=== PATIENT | female | born 1955 | race Caucasian/White ===

== ENCOUNTER 2019-03-31 23:14 | Emergency (ER) | payer OTHER, MEDICAID ==
[~2019-03-31] VITALS: Ht 154.9 cm; Wt 86.9 kg
[2019-03-31] MEDS ORDERED: IPRATRPIUM/ALBUTEROL 0.5/2.5MG 3 ML NEBU. NEB ONE (23:45)
[2019-03-31] MEDS ORDERED: DEXAMETHASONE SOD PHOS 4 MG/ML VIAL IVP ONE (23:45)
[2019-03-31] MEDS ORDERED: ASPIRIN 325 MG TABLET PO ONE (23:45)
[2019-03-31 23:58] LABS: BGAS PH 7.35 (7.35-7.45)
[2019-04-01] MEDS ORDERED: MAGNESIUM SULFATE 2GM 50 ML IV ONE
[2019-04-01 00:06] LABS: BASO # 0.1 x10^3/uL (0.0-0.2); BASO % 1 % (0-3); EOS # 0.3 x10^3/uL (0.0-0.7); EOS % 3 % (0-3); HEMATOCRIT 43.2 % (36.0-47.0); HEMOGLOBIN 14.2 g/dL (12.0-15.5); LYMPH # 3.7 x10^3/uL (1.0-4.8); LYMPH % 35 % (24-48); MEAN CORPUSCULAR HEMOGLOBIN 30 pg (25-35); MEAN CORPUSCULAR HGB CONC 33 g/dL (31-37); MEAN CORPUSCULAR VOLUME 92 fL (79-100); MONO # 0.6 x10^3/uL (0.0-1.1); MONO % 6 % (0-9); NEUT # 5.9 x10^3uL (1.8-7.7); NEUT % 56 % (31-73); PLATELET COUNT 218 x10^3/uL (140-400); RED BLOOD COUNT 4.67 x10^6/uL (3.50-5.40); RED CELL DISTRIBUTION WIDTH 13.9 % (11.5-14.5); WHITE BLOOD COUNT 10.7 x10^3/uL (4.0-11.0)
[2019-04-01 00:08] LABS: INFLUENZA A PATIENT NEGATIVE (NEGATIVE); INFLUENZA B PATIENT NEGATIVE (NEGATIVE)
[2019-04-01 00:11] LABS: ANION GAP 12 (6-14); BLOOD UREA NITROGEN 12 mg/dL (7-20); BUN/CREATININE RATIO 17 (6-20); CALCIUM 8.5 mg/dL (8.5-10.1); CARBON DIOXIDE 24 mmol/L (21-32); CHLORIDE 103 mmol/L (98-107); CREATININE 0.7 mg/dL (0.6-1.0); GLUCOSE 344 mg/dL (70-99); SODIUM 139 mmol/L (136-145)
[2019-04-01 00:15] LABS: POTASSIUM 4.5 mmol/L (3.5-5.1)
[2019-04-01 00:39] LABS: ALBUMIN 3.5 g/dL (3.4-5.0); ALK PHOS 66 U/L (46-116); AST (SGOT) 96 U/L (15-37); LIPASE 113 U/L (73-393); MAGNESIUM 1.9 mg/dL (1.8-2.4); TOTAL BILIRUBIN 0.3 mg/dL (0.2-1.0); TOTAL PROTEIN 6.9 g/dL (6.4-8.2)
[2019-04-01 00:42] LABS: ALT (SGPT) < 6 U/L (14-59)
--- NOTE | 2019-04-01 01:21 | PHYS DOC ---
Past History Past Medical History: Bronchitis, CHF, COPD, Diabetes, Hypertension, Pneumonia Past Surgical History: Cholecystectomy, Oophorectomy, Other Smoking: Cigarettes, Less than 1pk/day Alcohol Use: None Drug Use: None Adult General Chief Complaint Chief Complaint: SHORTNESS OF BREATH HPI HPI 63-year-old female presents via EMS with report of respiratory distress and hypoxia. Patient with history of recent admission to [facility] from 03/15/2019 - 03/18/2019 with reported pneumonia. Patient reports she had finished dosing of her antibiotics. Patient had required BiPAP at that time. Patient does have history of COPD, CHF, and prior CAD. Denies fever or chills. Denies trauma. History of present illness limited secondary to respiratory distress. Review of Systems Review of Systems Constitutional: Denies fever Respiratory: Reports shortness of breath Cardiovascular: Reports chest pain GI: Denies abdominal pain, nausea, or vomiting Review of systems limited secondary to respiratory distress. Current Medications Current Medications Current Medications Medications (Trade) Dose Ordered Sig/Kevin Start Time Stop Time Status Last Admin Dose Admin Albuterol/ Ipratropium (Duoneb) 3 ml 1X ONCE 03/31/19 23:45 03/31/19 23:46 DC 03/30/19 23:59 3 ML Aspirin (Angela Aspirin) 325 mg 1X ONCE 03/31/19 23:45 03/31/19 23:46 DC 04/01/19 00:08 325 MG Dexamethasone Sodium Phosphate (Decadron) 10 mg 1X ONCE 03/31/19 23:45 03/31/19 23:46 DC 03/31/19 23:55 10 MG Fentanyl Citrate (Fentanyl 2ml Vial) 50 mcg 1X ONCE 04/01/19 00:30 04/01/19 00:31 DC 04/01/19 00:31 50 MCG Furosemide (Lasix) 40 mg 1X ONCE 04/01/19 01:30 04/01/19 01:31 Insulin Human Regular (HumuLIN R VIAL) 10 unit 1X ONCE 04/01/19 01:30 04/01/19 01:31 Magnesium Sulfate 50 ml @ 25 mls/hr 1X ONCE 04/01/19 00:00 04/01/19 01:59 03/31/19 23:55 25 MLS/HR Allergies Allergies Allergies Coded Allergies Type Severity Reaction Last Updated Verified Penicillins Allergy Severe Hives 04/01/19 Yes cephalexin Allergy Severe Hives 04/01/19 Yes diphenhydramine Allergy Intermediate 04/01/19 Yes prednisone Adverse Reaction Mild MAKES HER FEEL AMPED UP 04/01/19 Yes Physical Exam Physical Exam Constitutional: Well developed, well nourished, moderate respiratory distress HENT: Normocephalic, atraumatic, oropharynx moist Eyes: Conjunctiva normal, no discharge Neck: Normal range of motion, no tenderness, supple Cardiovascular: Heart rate tachycardic, regular rhythm Lungs & Thorax: Bilateral breath sounds diminished with coarse breath sounds Abdomen: Soft, no tenderness Skin: Warm, dry, no erythema, no rash Back: No tenderness, no CVA tenderness Extremities: No tenderness, ROM intact, 1-2+ bilateral lower extremity edema Neurologic: Alert and oriented X 3, normal motor function, normal sensory function, no focal deficits noted Psychologic: Affect anxious, judgement normal Current Patient Data Vital Signs Vital Signs Date Time Temp Pulse Resp B/P (MAP) Pulse Ox O2 Delivery O2 Flow Rate FiO2 04/01/19 00:31 33 94 BiPAP/CPAP Lab Results Laboratory Tests Test 03/31/19 23:33 03/31/19 23:47 03/31/19 23:50 03/31/19 23:55 Influenza Type A (Rapid) Negative (NEGATIVE) Influenza Type B (Rapid) Negative (NEGATIVE) POC Arterial pH 7.34 (7.35-7.45) L Arterial Blood pH (Temp corrected) 7.35 POC Arterial pCO2 44 mmHg (35-45) Arterial Blood pCO2 (Temp correct) 43 mmHg POC Arterial pO2 78 mmHg (75-100) Arterial Blood pO2 (Temp corrected) 75 mmHg Arterial Blood HCO3 24 mmol/L (21-28) POC Arterial Blood O2 Sat 94 % (95-99) L POC FiO2 65.0 White Blood Count 10.7 x10^3/uL (4.0-11.0) Red Blood Count 4.67 x10^6/uL (3.50-5.40) Hemoglobin 14.2 g/dL (12.0-15.5) Hematocrit 43.2 % (36.0-47.0) Mean Corpuscular Volume 92 fL (79-100) Mean Corpuscular Hemoglobin 30 pg (25-35) Mean Corpuscular Hemoglobin Concent 33 g/dL (31-37) Red Cell Distribution Width 13.9 % (11.5-14.5) Platelet Count 218 x10^3/uL (140-400) Neutrophils (%) (Auto) 56 % (31-73) Lymphocytes (%) (Auto) 35 % (24-48) Monocytes (%) (Auto) 6 % (0-9) Eosinophils (%) (Auto) 3 % (0-3) Basophils (%) (Auto) 1 % (0-3) Neutrophils # (Auto) 5.9 x10^3uL (1.8-7.7) Lymphocytes # (Auto) 3.7 x10^3/uL (1.0-4.8) Monocytes # (Auto) 0.6 x10^3/uL (0.0-1.1) Eosinophils # (Auto) 0.3 x10^3/uL (0.0-0.7) Basophils # (Auto) 0.1 x10^3/uL (0.0-0.2) Prothrombin Time 10.4 SEC (9.4-11.4) Prothrombin Time INR 1.0 (0.9-1.1) Activated Partial Thromboplast Time 24 SEC (23-33) Sodium Level 139 mmol/L (136-145) Potassium Level 4.5 mmol/L (3.5-5.1) Chloride Level 103 mmol/L (98-107) Carbon Dioxide Level 24 mmol/L (21-32) Anion Gap 12 (6-14) Blood Urea Nitrogen 12 mg/dL (7-20) Creatinine 0.7 mg/dL (0.6-1.0) Estimated GFR (Cockcroft-Gault) 84.0 BUN/Creatinine Ratio 17 (6-20) Glucose Level 344 mg/dL (70-99) H Lactic Acid Level 1.4 mmol/L (0.4-2.0) Calcium Level 8.5 mg/dL (8.5-10.1) Magnesium Level 1.9 mg/dL (1.8-2.4) Total Bilirubin 0.3 mg/dL (0.2-1.0) Aspartate Amino Transferase (AST) 96 U/L (15-37) H Alanine Aminotransferase (ALT) < 6 U/L (14-59) L Alkaline Phosphatase 66 U/L (46-116) Creatine Kinase 55 U/L (26-192) Creatine Kinase MB (Mass) 0.6 ng/mL (0.0-3.6) Creatine Kinase MB Relative Index 1.1 % (0-4) Troponin I Quantitative < 0.017 ng/mL (0-0.055) ST-Mhu-N-Type Natriuretic Peptide 1268 pg/mL (0-124) H Total Protein 6.9 g/dL (6.4-8.2) Albumin 3.5 g/dL (3.4-5.0) Albumin/Globulin Ratio 1.0 (1.0-1.7) Lipase 113 U/L (73-393) Blood pH 7.35 (7.35-7.45) Blood Gas PCO2 43 mmHg (35-45) Blood Gas PO2 75 mmHg (80-100) L Blood Gas HCO3 24 mmol/L (22-26) Arterial Bld O2 Saturation (Calc) 94 % (92-99) FiO2 65 % EKG EKG @2355 Sinus tachycardia at 118bpm, NO ST elevation, frequent PVCs Radiology/Procedures Radiology/Procedures PROCEDURE: PORTABLE CHEST 1V EXAM: AP View of the chest DATE: 03/31/2019 11:21 PM INDICATION: Dyspnea.Hx COPD,smoker COMPARISON: 12/25/2011 FINDINGS: Moderate cardiomegaly Mediastinal and hilar contours are stable. No lobar consolidation. Bilateral interstitial prominence. Superimposed patchy airspace opacities in the left suprahilar region may represent developing consolidative process. No pleural effusion or pneumothorax. IMPRESSION: 1. Bilateral interstitial prominence with cardiomegaly, nonspecific but may be seen with pulmonary edema. 2. Superimposed patchy airspace opacities in the left suprahilar region may represent developing consolidative process. Imaging follow up to resolution is recommended. Electronically signed by: Alejandro Fischer MD (04/01/2019 1:24 AM) [facility] Course & Med Decision Making Course & Med Decision Making Pertinent Labs and Imaging studies reviewed. (See chart for details) Patient presents via EMS with report of progressive shortness of breath. Patient noted to be significant family tachycardic up into the 140s and hypoxic down to mid 80s. Patient without significant improvement of oxygenation despite supplemental O2. Patient with increased work of breathing. BiPAP therefore applied. DuoNeb provided. ABG without significant hypercapnia. EKG stable. Labs obtained and posted to chart. BNP elevated. Initial troponin within normal limits. White blood cell count and lactic acid within normal limits. Rapid influenza negative. Hyperglycemia addressed. CXR with findings of increased vascular congestion. Lasix IV and nitro paste provided. Patient requiring admission for further evaluation and treatment. Discussed with Dr. Acosta (hospitalist) at [place]. requests transfer to [place] with admission to hospitalist group for continuity of care given recent admission and for possible need for continued pulmonology consultation. Discussed case with Dr. Cheney (hospitalist) at [place], who is in agreement with transfer for admission. Discussed findings and plan with patient and family, who acknowledge understanding and agreement. Dragon Disclaimer Dragon Disclaimer This electronic medical record was generated, in whole or in part, using a voice recognition dictation system. Departure Departure: Impression: Primary Impression: Respiratory failure Additional Impressions: Hypoxia Acute exacerbation of CHF (congestive heart failure) Hyperglycemia Chest pain Disposition: 05 TRANSFER OTHER ([facility]) Condition: GUARDED Referrals: ANATOLIY MUHAMMAD MD (PCP) HEART Score for Chest Pain PTs The HEART Score for CP Pts HEART Score for Chest Pain: HEART Score for Chest Pain Response (Comments) Value History Moderately Suspicious 1 ECG Nonspecific Repolarizatio 1 Age >45 - < 65 1 Risk Factors >3 Risk Factors or Hx CAD 2 Troponin < Normal Limit 0 Total 5 Risk Factors: Risk Factors: DM, Current or recent (<one month) smoker, HTN, HLP, family history of CAD, obesity. Risk Scores: Score 0 - 3: 2.5% MACE over next 6 weeks - Discharge Home Score 4 - 6: 20.3% MACE over next 6 weeks - Admit for Clinical Observation Score 7 - 10: 72.7% MACE over next 6 weeks - Early Invasive Strategies Critical Care Time Critical care time was 30 minutes which includes time at bedside, spent in discussion of patient's care with specialists and/or family members, with interpretation of laboratory and/or radiological studies and is exclusive of procedures. Problem Qualifiers Primary Impression: Respiratory failure Chronicity: acute Respiratory failure complication: hypoxia Qualified Codes: J96.01 - Acute respiratory failure with hypoxia Additional Impressions: Acute exacerbation of CHF (congestive heart failure) Heart failure type: diastolic Qualified Codes: I50.33 - Acute on chronic diastolic (congestive) heart failure Chest pain Chest pain type: unspecified Qualified Codes: R07.9 - Chest pain, unspecified CHELSI JONES DO Apr 01, 2019 01:21
--- NOTE | 2019-04-01 01:27 | RAD ---
EXAM: AP View of the chest DATE: 03/31/2019 11:21 PM INDICATION: Dyspnea.Hx COPD,smoker COMPARISON: 12/25/2011 FINDINGS: Moderate cardiomegaly Mediastinal and hilar contours are stable. No lobar consolidation. Bilateral interstitial prominence. Superimposed patchy airspace opacities in the left suprahilar region may represent developing consolidative process. No pleural effusion or pneumothorax. IMPRESSION: 1. Bilateral interstitial prominence with cardiomegaly, nonspecific but may be seen with pulmonary edema. 2. Superimposed patchy airspace opacities in the left suprahilar region may represent developing consolidative process. Imaging follow up to resolution is recommended. Electronically signed by: Alejandro Fischer MD (04/01/2019 1:24 AM) [facility]
[2019-04-01] MEDS ORDERED: FUROSEMIDE 40 MG/4 ML VIAL IVP ONE (01:30)
[2019-04-01] MEDS ORDERED: INSULIN REGULAR 100 UNIT/ML 3ML VIAL. SQ ONE (01:30)
[2019-04-01 01:51] VITALS: BP 136/93
[2019-04-01] MEDS ORDERED: NITROGLYCERIN OINT 1 GM PACKET. TP ONE (02:00)
[2019-04-01] MEDS ORDERED: IPRATRPIUM/ALBUTEROL 0.5/2.5MG 3 ML NEBU. NEB ONE (02:15)
--- NOTE | 2019-04-01 23:56 | EKG ---
[address] [address] Test Date: 2019-03-31 Test Time: 23:55:40 Pat Name: JOSEPH BO Department: Room: Gender: F Outside Collector: : 1955 Requested By: CHELSI JONES Order Number: [id number] Reading MD: Measurements Intervals [place] Rate: 118 P: 10 IN: 132 QRS: 49 QRSD: 102 T: 34 QT: 328 QTc: 462 Interpretive Statements SINUS TACHYCARDIA QRS(T) CONTOUR ABNORMALITY CONSIDER ANTEROSEPTAL MYOCARDIAL DAMAGE POSSIBLY ABNORMAL ECG RI6.01 No previous ECG available for comparison
== END 2019-04-01 02:53 | disposition short-term general hospital (02) ==
LOC: ER 23:14
DX: J96.01 Acute respiratory failure with hypoxia (principal); I11.0 Hypertensive heart disease with heart failure; I50.33 Acute on chronic diastolic (congestive) heart failure; R07.9 Chest pain, unspecified; E11.65 Type 2 diabetes mellitus with hyperglycemia; J44.9 Chronic obstructive pulmonary disease, unspecified; F17.210 Nicotine dependence, cigarettes, uncomplicated; Z88.0 Allergy status to penicillin; Z88.8 Allergy status to other drugs, medicaments and biological substances; Z88.1 Allergy status to other antibiotic agents
CPT/HCPCS: 36415; 36600; 71045; 80053; 82553; 82803; 83605; 83690; 83735; 83880; 84484; 85025; 85610; 85730; 87040; 87804; 93005; 94640; 94660; 96365; 96366; 96372; 96375; 96376; 99291; J1100; J1815; J1940; J2060; J3010; J3475; J7620

== ENCOUNTER 2019-04-22 20:26 | Emergency (ER) | payer OTHER, MEDICAID ==
[~2019-04-22] VITALS: Ht 154.9 cm; Wt 84.3 kg
[2019-04-22 21:15] LABS: BASO # 0.1 x10^3/uL (0.0-0.2); BASO % 1 % (0-3); EOS # 0.1 x10^3/uL (0.0-0.7); EOS % 1 % (0-3); HEMATOCRIT 36.5 % (36.0-47.0); HEMOGLOBIN 11.9 g/dL (12.0-15.5); LYMPH # 1.9 x10^3/uL (1.0-4.8); LYMPH % 17 % (24-48); MEAN CORPUSCULAR HEMOGLOBIN 30 pg (25-35); MEAN CORPUSCULAR HGB CONC 33 g/dL (31-37); MEAN CORPUSCULAR VOLUME 91 fL (79-100); MONO # 0.9 x10^3/uL (0.0-1.1); MONO % 8 % (0-9); NEUT # 8.1 x10^3uL (1.8-7.7); NEUT % 73 % (31-73); PLATELET COUNT 233 x10^3/uL (140-400); RED CELL DISTRIBUTION WIDTH 14.6 % (11.5-14.5); WHITE BLOOD COUNT 11.2 x10^3/uL (4.0-11.0)
--- NOTE | 2019-04-22 21:17 | PHYS DOC ---
Past History Past Medical History: Bronchitis, CAD, CHF, COPD, Diabetes, Hypertension, Pneumonia Past Surgical History: Cholecystectomy, Oophorectomy, Other Additional Past Surgical Histo: CARDIAC STENT Smoking: Cigarettes, Less than 1pk/day Alcohol Use: None Drug Use: None Adult General Chief Complaint Chief Complaint: BRADYCARDIA HPI HPI 63-year-old female presents with bradycardia. The patient was at home with her blood pressure machine and her heart rate was in the low 50s. She is very concerned this is not like this before. Patient had stents placed at [facility] about 4 days ago. She comes in because she wants to make sure there is not complication. She is wearing a life vest has not shocked her today. She has been feeling more fatigued, but denies shortness of breath or dizziness. She has no chest pain. Denies fever or chills. Review of Systems Review of Systems Constitutional: Denies fever or chills [] Eyes: Denies change in visual acuity, redness, or eye pain [] HENT: Denies nasal congestion or sore throat [] Respiratory: Denies cough or shortness of breath [] Cardiovascular: No additional information not addressed in HPI [] GI: Denies abdominal pain, nausea, vomiting, bloody stools or diarrhea [] : Denies dysuria or hematuria [] Musculoskeletal: Denies back pain or joint pain [] Integument: Denies rash or skin lesions [] Neurologic: Denies headache, focal weakness or sensory changes [] Endocrine: Denies polyuria or polydipsia [] All other systems were reviewed and found to be within normal limits, except as documented in this note. Allergies Allergies Allergies Coded Allergies Type Severity Reaction Last Updated Verified Penicillins Allergy Severe Hives 04/01/19 Yes cephalexin Allergy Severe Hives 04/01/19 Yes diphenhydramine Allergy Intermediate 04/01/19 Yes prednisone Adverse Reaction Mild MAKES HER FEEL AMPED UP 04/01/19 Yes Physical Exam Physical Exam Constitutional: Well developed, well nourished, no acute distress, non-toxic appearance. [] HENT: Normocephalic, atraumatic, bilateral external ears normal, oropharynx moist, no oral exudates, nose normal. [] Eyes: PERRLA, EOMI, conjunctiva normal, no discharge. [] Neck: Normal range of motion, no tenderness, supple, no stridor. [] Cardiovascular:Heart rate regular rhythm, no murmur [] Lungs & Thorax: Bilateral breath sounds clear to auscultation. Lifevest lying on the bed. [] Abdomen: Bowel sounds normal, soft, no tenderness, no masses, no pulsatile masses. [] Skin: Warm, dry, no erythema, no rash. [] Back: No tenderness, no CVA tenderness. [] Extremities: No tenderness, no cyanosis, no clubbing, ROM intact, no edema. [] Neurologic: Alert and oriented X 3, normal motor function, normal sensory function, no focal deficits noted. [] Psychologic: Affect normal, judgement normal, mood concerned. [] Current Patient Data Vital Signs Vital Signs Date Time Temp Pulse Resp B/P (MAP) Pulse Ox O2 Delivery O2 Flow Rate FiO2 04/22/19 20:30 98.2 92 24 136/93 (107) 97 Room Air EKG EKG Sinus rhythm, rate 93, PVCs, possible bigeminy, no ST elevations or depressions.[] Radiology/Procedures Radiology/Procedures [] Impressions: EXAM: CHEST ONE VIEW. HISTORY: Bradycardia. COMPARISON: 04/01/2019. FINDINGS: A frontal view of the chest is obtained. There is a small left pleural effusion. Basilar interstitial opacities are consistent with atelectasis and mild pulmonary edema. There is no pneumothorax. The heart is mildly enlarged. IMPRESSION: 1. Small left pleural effusion. Mild pulmonary edema. Electronically signed by: Moo Isaac MD (04/22/2019 9:14 PM) [id number] DICTATED AND SIGNED BY: EDUARDA ISAAC MD DATE: 04/22/192113 CC: MICHELLE VANG DO; AANTOLIY MUHAMMAD MD ~ Course & Med Decision Making Course & Med Decision Making Pertinent Labs and Imaging studies reviewed. (See chart for details) Patient's chest x-ray suggestive of pulmonary edema and CHF. Her blood pressure is low as 1 hesitant about giving her Lasix by IV. Her rate has stayed in the upper 80s and low 90s. Her labs are mostly unremarkable other than the elevated proBNP over 5000. I believe the patient should be readmitted to [facility]. I will discuss this with the hospitalist. I spoke with Dr. Conti and he has accepted the patient for transfer and admission. I spoke with the on-call milk inspector and he recommended placing the patient on a dopamine drip at 5 mcg/kg/m. The patient had some vomiting prior to leaving the emergency room. Gave her some IV normal saline as well as 4 mg of Zofran. Her blood pressure improved after the dopamine drip was started. We were able to cut back to 2.5 mcg/kg/m. 51 minutes of critical care time was spent on this patient exclusive of other billable procedures. [] Dragon Disclaimer Dragon Disclaimer This electronic medical record was generated, in whole or in part, using a voice recognition dictation system. Departure Departure: Impression: Primary Impression: CHF (congestive heart failure) Additional Impressions: Pulmonary edema cardiac cause Hypotension Disposition: [facility] Condition: GUARDED Referrals: ANATOLIY MUHAMMAD MD (PCP) Problem Qualifiers Primary Impression: CHF (congestive heart failure) Heart failure type: systolic Heart failure chronicity: acute Qualified Codes: I50.21 - Acute systolic (congestive) heart failure Additional Impressions: Hypotension Hypotension type: other hypotension type Qualified Codes: I95.89 - Other hypotension MICHELLE VANG DO Apr 22, 2019 21:17
[2019-04-22 21:22] LABS: CALCIUM 8.5 mg/dL (8.5-10.1); CREATININE 0.8 mg/dL (0.6-1.0); POTASSIUM 4.1 mmol/L (3.5-5.1)
[2019-04-22 21:35] LABS: ALBUMIN 2.6 g/dL (3.4-5.0); ALBUMIN/GLOBULIN RATIO 0.8 (1.0-1.7); TOTAL BILIRUBIN 0.3 mg/dL (0.2-1.0); TOTAL PROTEIN 5.8 g/dL (6.4-8.2)
[2019-04-22] MEDS ORDERED: FUROSEMIDE 40 MG/4 ML VIAL IVP ONE ×2 (22:15→23:00)
[2019-04-22] MEDS ORDERED: IV NORMAL SALINE 1,000ML 1,000 ML IV ONE ×2 (22:15→23:00)
[2019-04-22] MEDS ORDERED: ONDANSETRON PF 4 MG/2 ML VIAL. IVP ONE (23:00)
[2019-04-22 23:30] VITALS: BP 94/62
--- NOTE | 2019-04-23 00:49 | EKG ---
[address] [address] Test Date: 2019-04-22 Test Time: 20:39:52 Pat Name: JOSEPH BO Department: Room: Gender: F Hand Compositor: : 1955 Requested By: MICHELLE VANG Order Number: [id number] Reading MD: Measurements Intervals [place] Rate: 93 P: 37 ID: [id number] QRS: 20 QRSD: 94 T: -16 QT: 388 QTc: 485 Interpretive Statements SINUS RHYTHM VENTRICULAR PREMATURE COMPLEX(ES), BIGEMINY LOW LIMB LEAD VOLTAGE PROLONGED QT ABNORMAL ECG RI6.01 No previous ECG available for comparison
== END 2019-04-23 00:16 | disposition short-term general hospital (02) ==
LOC: ER 20:26
DX: I11.0 Hypertensive heart disease with heart failure (principal); I50.21 Acute systolic (congestive) heart failure; I95.89 Other hypotension; J44.9 Chronic obstructive pulmonary disease, unspecified; E11.9 Type 2 diabetes mellitus without complications; I25.10 Atherosclerotic heart disease of native coronary artery without angina pectoris; F17.210 Nicotine dependence, cigarettes, uncomplicated; Z88.0 Allergy status to penicillin; Z88.1 Allergy status to other antibiotic agents; Z88.8 Allergy status to other drugs, medicaments and biological substances
CPT/HCPCS: 36415; 71045; 80053; 83880; 84484; 85025; 93005; 96365; 96366; 96375; 99285; J1265; J1940; J2405; J7030